=== PATIENT | female | born 1940 | race Caucasian/White ===

== ENCOUNTER 2018-09-09 11:59 | Observation (INO) ==
[2018-09-09] MEDS ORDERED: Isovue-370 500 ML INFUS..BTL IV ONE (12:32)
[2018-09-09] MEDS ORDERED: 0.9 % Sodium Chloride 1,000 ML IVC ONE (12:33)
[2018-09-09 12:36] LABS: Basophils % 0.7 %; Eosinophils # 0.2 K/mcL (0.0-0.6); Eosinophils % 3.4 %; Hematocrit 38.8 % (35.3-44.9); Hemoglobin 12.5 g/dL (11.5-15.4); Lymphocytes # 1.2 K/mcL (0.6-4.6); Lymphocytes % 19.6 %; Mean Corpuscular HGB Conc 32.2 g/dL (31.6-35.5); Mean Corpuscular Hemoglobin 31.5 pg (28.0-33.3); Mean Corpuscular Volume 97.7 fL (83.0-100.0); Mean Platelet Volume 11.2 fL (9.4-12.4); Monocytes # 0.5 K/mcL (0.0-1.3); Monocytes % 8.6 %; Platelet Count 243 K/mcL (140-400); Red Blood Count 3.97 M/mcL (3.82-4.97); Red Cell Distribution Width 12.8 % (11.5-14.5); Segmented Neutrophils % 67.7 %
--- NOTE | 2018-09-09 12:43 | Emergency Department Note ---
Disposition Clinical Impression: Generalized weakness Chest pain Qualifiers: Chest pain type: unspecified Qualified Code(s): R07.9 - Chest pain, unspecified Disposition: Admitted As Inpatient Condition: Good Forms: ED Satisfaction Letter Time of Disposition: 14:48 General Adult HPI - General Chief complaint: ED Chest Pain Stated complaint: CP Time Seen by Provider: 09/09/18 12:00 Source: patient, family Mode of arrival: ambulatory Limitations: no limitations Nursing Notes Reviewed: Yes Vital Signs Reviewed: Yes - History of Present Illness HPI Narrative: 77 year old female presents to the eD with complaints of chest pain on the right upper side and states that this has been getting wrose over the past cople of a days and ahas a history of paroxysmal atrial fibrillation which required conversion last month at [facility] in [place], [place]. Ramy states that the last time she felt like this she was diagnosed with influenza and norovirus and she is experincig brown watery stool. Ramy states that the chest pain is sharp and cramping and worse with movement and coughs and states that she has epigastiric pain as well. Ramy denies fvers but states that she tends to have low eletrolytes that results in replacement and hosital aimdsison. Ramy appers midly to moderately dehydrated as well. Ramy otderikrmiguel is at baseline for her vitals. denies exertional dyspnea or diaphoreiss. NO recent history of DVTs. PE although she did have caardiac procedures including a JAIRO done last month. - Related Data Allergies Allergy/AdvReac Type Severity Reaction Status Date / Time onabotulinumtoxinA AdvReac See Verified 06/16/18 18:07 [From Botox] Comments Constitutional: Denies: fever, chills, weakness, weight change Eyes: Denies: eye pain, eye discharge, vision change ENT ED: Denies: ear pain, throat pain, dental pain, hearing loss, epistaxis, congestion, dysphagia Cardiovascular: Reports: chest pain. Denies: palpitations, dyspnea on exertion, edema, syncope Respiratory: Denies: cough, dyspnea, wheezes, hemoptysis, stridor Gastrointestinal: Reports: abdominal pain, diarrhea. Denies: nausea, vomiting, constipation, hematemesis, melena, hematochezia Genitourinary: Denies: dysuria, frequency, hematuria, discharge Musculoskeletal: Denies: back pain, neck pain, arthralgia, myalgia Integumentary: Denies: rash, abrasion, lesions Neurological: Denies: headache, weakness, numbness, paresthesias, confusion, abnormal gait, vertigo Psychiatric: Denies: anxiety, depression, suicidal thoughts, homicidal thoughts, auditory hallucinations, visual hallucinations Endocrine: Denies: fatigue Hematological/Lymphatic: Denies: easy bleeding, easy bruising Allergic/Immunologic: Denies: facial swelling, urticaria Past Medical History - Past Medical History Medical history: Reports: atrial fibrillation, hyperlipidemia, hypertension Psychiatric history: Reports: anxiety - Social History Smoking Status: Former smoker Alcohol use: Reports: none Drug use: Reports: none Physical Exam - General Limitations: no limitations General appearance: alert, in no apparent distress - Head Head exam: atraumatic, normocephalic, normal inspection - Eye Eye exam: Present: normal appearance, PERRL, EOMI - Expanded Eye Exam Pupils: Bilateral: reactive - ENT ENT exam: normal exam, normal oropharynx, mucous membranes moist - Expanded ENT Exam External ear exam: Present: normal external inspection Mouth exam: Present: normal external inspection Teeth exam: Present: normal inspection Throat exam: Present: normal inspection - Neck Neck exam: Present: normal inspection, full ROM, trachea midline - Chest Chest inspection: Present: normal inspection, symmetric chest wall rise - Respiratory Respiratory exam: Present: normal lung sounds bilaterally - Cardiovascular Cardiovascular exam: Present: regular rate, normal rhythm, normal heart sounds - Abdominal Exam Abdominal exam: Present: soft, tenderness. Absent: Non-Tender, distention, guarding, rebound, rigidity Abdominal tenderness: Present: epigastrium, mild - Extremities Exam Extremities exam: Present: normal inspection, full ROM. Absent: tenderness, pedal edema - Expanded Upper Extremity Exam Shoulder exam: Present: normal inspection, full ROM Arm exam: Present: normal inspection, full ROM Elbow exam: Present: normal inspection, full ROM Forearm/Wrist exam: Present: normal inspection, full ROM Hand exam: Present: normal inspection, full ROM Vascular exam: Normal: capillary refill, radial pulse - Expanded Lower Extremity Exam Hip/Pelvis exam: Present: normal inspection, full ROM Upper leg exam: Present: normal inspection, full ROM Knee exam: Present: normal inspection, full ROM Lower leg exam: Present: normal inspection, full ROM Ankle exam: Present: normal inspection, full ROM Foot/toe exam: Present: normal inspection, full ROM Neurovascular/Tendon exam: Absent: motor deficit, sensory deficit, tendon deficit - Back Exam Back exam: Present: normal inspection, full ROM. Absent: tenderness - Neurological Exam Neurological exam: Present: alert, oriented X3 - Expanded Neurological Exam Patient oriented to: Present: person, place, time Coma Scale Eye Opening: Spontaneous Coma Scale Motor Response: Obeys Commands Coma Scale Verbal Response: Oriented Coma Scale Total: 15 - Psychiatric Psychiatric exam: Present: normal affect, normal mood - Skin Skin exam: Present: warm, dry, intact, normal color Course Course Narrative: we will do a cardiopulmonar and GI workup and CTA chest wit aBCt with IV contrast. IVF and influenza swab. - Consultations Consultation #1: discussed case with Dr. Perez and she accepts patient to her service Time: 14:48 Vital Signs Temperature 98.3 F 09/09/18 12:35 Pulse Rate 55 09/09/18 12:35 Respiratory Rate 16 09/09/18 12:35 Blood Pressure 134/80 09/09/18 12:35 O2 Sat by Pulse Oximetry 98 09/09/18 12:35 Temperature 98.3 F 09/09/18 12:35 Pulse Rate 68 09/09/18 14:44 Respiratory Rate 16 09/09/18 14:44 Blood Pressure 99/55 09/09/18 14:44 O2 Sat by Pulse Oximetry 95 09/09/18 14:44 Oxygen Delivery Oxygen Delivery Room Air Medical Decision Making - Medical Records Medical records reviewed: Yes I reviewed the patient's medical records. - Lab Data Lab results reviewed: Yes I reviewed the patient's lab results. Result diagrams: 09/09/18 12:23 09/09/18 12:23 Lab Results 09/09/18 09/09/18 09/09/18 Range/Units 12:23 12:23 12:23 WBC 5.9 (4.3-11.1) K/mcL RBC 3.97 (3.82-4.97) M/mcL Hgb 12.5 (11.5-15.4) g/dL Hct 38.8 (35.3-44.9) % MCV 97.7 (83.0-100.0) fL MCH 31.5 (28.0-33.3) pg MCHC 32.2 (31.6-35.5) g/dL RDW 12.8 (11.5-14.5) % Plt Count 243 (140-400) K/mcL MPV 11.2 (9.4-12.4) fL Immature Gran % 0.0 (0-4) % Seg Neutrophils % 67.7 % Lymphocytes % 19.6 % Monocytes % 8.6 % Eosinophils % 3.4 % Basophils % 0.7 % Neutrophils # 4.0 (1.6-8.9) K/mcL Lymphocytes # 1.2 (0.6-4.6) K/mcL Monocytes # 0.5 (0.0-1.3) K/mcL Eosinophils # 0.2 (0.0-0.6) K/mcL Basophils # 0.0 (0.0-0.2) K/mcL PT 29.5 H (9.4-12.1) Seconds INR 2.6 APTT 41.8 H (26.0-36.0) Seconds Sodium 142 (136-145) mEq/L Potassium 4.1 (3.5-5.1) mEq/L Chloride 104 (98-107) mEq/L Carbon Dioxide 33 H (23-29) mEq/L BUN 19 (8-23) mg/dL Creatinine 0.79 (0.60-1.20) mg/dL Est GFR ( Amer) > 60 (> 60) Est GFR (Non-Af Amer) > 60 (> 60) BUN/Creatinine Ratio 24 (6-26) Glucose 96 (70-105) mg/dL Calculated Osmolality 296 (280-300) Calcium 9.2 (8.6-10.3) mg/dL Total Bilirubin 0.3 (0.3-1.0) mg/dL Direct Bilirubin 0.1 (0.0-0.2) mg/dL Indirect Bilirubin 0.2 (0.0-1.2) mg/dL AST 30 (13-39) Units/L ALT 21 (7-52) Units/L Alkaline Phosphatase 83 (34-104) Units/L Troponin I < 0.03 (< 0.04) ng/mL Serum Total Protein 6.5 (6.4-8.9) g/dL Albumin 4.0 (3.5-5.7) g/dL Globulin 2.5 (2.4-3.5) g/dL Albumin/Globulin Ratio 1.6 (1.1-2.2) Lipase 22 (11-82) Units/L - Radiology Data Radiology results reviewed: Yes I reviewed the patient's radiology results. - EKG Data EKG #1 EKG attestation: Yes I reviewed and interpreted this EKG. EKG results narrative: NSR with rate of 61. NO STEMI. normal interlva. occasionsl PVCs. no cahnge from 06/16/18. 121
[2018-09-09 12:45] LABS: INR 2.6; Prothrombin Time 29.5 Seconds (9.4-12.1)
[2018-09-09 12:48] LABS: Activated Partial Thrombo Time 41.8 Seconds (26.0-36.0)
[2018-09-09 12:57] LABS: Troponin I < 0.03 ng/mL (< 0.04)
[2018-09-09 13:03] LABS: Alanine Aminotransferase 21 Units/L (7-52); Albumin/Globulin Ratio 1.6 (1.1-2.2); Alkaline Phosphatase 83 Units/L (34-104); Aspartate Amino Transferase 30 Units/L (13-39); BUN/Creatinine Ratio 24 (6-26); Bilirubin,Direct 0.1 mg/dL (0.0-0.2); Bilirubin,Indirect 0.2 mg/dL (0.0-1.2); Bilirubin,Total 0.3 mg/dL (0.3-1.0); Blood Urea Nitrogen 19 mg/dL (8-23); Calcium 9.2 mg/dL (8.6-10.3); Carbon Dioxide 33 mEq/L (23-29); Chloride 104 mEq/L (98-107); Globulin 2.5 g/dL (2.4-3.5); Glucose 96 mg/dL (70-105); Lipase 22 Units/L (11-82); Osmolality,Calculated 296 (280-300); Potassium 4.1 mEq/L (3.5-5.1); Sodium 142 mEq/L (136-145); Total Protein 6.5 g/dL (6.4-8.9); eGFR For Non-African Americans > 60 (> 60)
[2018-09-09 14:56] LABS: Bilirubin,Urine Negative (Negative); Blood,Urine Small (Negative); Clarity,Urine Clear (Clear); Color,Urine Yellow (Yellow); Glucose,Urine (UA) Normal (Normal); Ketones,Urine Negative (Negative); Leukocyte Esterase,Urine Negative (Negative); Nitrite,Urine Negative (Negative); PH,Urine 7.5 pH Units (5.0-8.0); Protein,Urine Negative (Neg-Trace); Urobilinogen,Urine Normal (Normal)
[2018-09-09 14:59] LABS: Bacteria,Urine None Seen per hpf (None-Few); Hyaline Casts,Urine None Seen per lpf (None-Few); Squamous Epithelial Cell,Urine Few per lpf (None-Few); WBC,Urine 0-3 per hpf (0-3)
[2018-09-09] MEDS ORDERED: Naloxone 0.4 MG/ML INJ IVP PRN (15:45)
[2018-09-09] MEDS ORDERED: Nitroglycerin 0.4 MG TAB.SUBL SL PRN (15:59)
--- NOTE | 2018-09-09 16:43 | Internal Med History&Physical ---
Date of Encounter: 09/09/18 Time of Encounter: 15:41 Internal Medicine - H&P: HPI Chief complaint: chest pain Admitted From: Home Plans for Post Hospital Care: Home History of present illness: Ms. Urias is a 77 year old female has history of hypertension, atrial fibrillation on Coumadin, but no known CAD stents present to emergency room for chest pain. Patient stats that 5 days ago he got a cold with diarrhea, chest congestion, but yesterday morning she woke up with chest pain, pain is located to the left chest, is sharp, radiating to the neck, lasted for few min, she denies dizziness, palpation shortness of breath. She does complain of intermittent epigastric pain associated was nausea no vomiting. Since then she has been feeling well. she is concerned about a heart problem. In the emergency room she is afebrile, vitals are stable, lab was unremarkable INR 2.6, UA is negative for infections. CT angiogram of chest and abdominal did not PE, no aortic dissection . Negative troponin and EKG. Patient is going to be admitted for chest pain workup Past Med Surg Social Fam HX - Past Medical History Medical history: atrial fibrillation, hyperlipidemia, hypertension Psychiatric history: anxiety - Social History Smoking Status: Former smoker Alcohol use: none Drug use: none Internal Medicine - H&P: Meds Acetaminophen [Tylenol] 500 mg PO Q6HR PRN 09/09/18 [History] Aspirin [Adult Aspirin] 81 mg PO DAILY 09/09/18 [History] Atorvastatin Calcium 80 mg PO QPM 09/09/18 [History] Cholecalciferol (D-3) [Vitamin D] 1,000 unit PO DAILY 09/09/18 [History] Lisinopril [Zestril] 40 mg PO QAM 09/09/18 [History] Primidone [Mysoline] 250 mg PO TID 09/09/18 [History] Sotalol [Betapace] 80 mg PO BID 09/09/18 [History] Warfarin [Coumadin] 1.5 mg PO WE 09/09/18 [History] Warfarin [Coumadin] 5 mg PO SUMOTUTHFRSA 09/09/18 [History] clonazePAM [Clonazepam] 0.5 mg PO QAM 09/09/18 [History] Allergy/AdvReac Type Severity Reaction Status Date / Time onabotulinumtoxinA AdvReac See Verified 06/16/18 18:07 [From Botox] Comments All Systems PM: A 10-system review of systems was performed and is negative for pertinent findin gs except as documented above in the HPI. - Constitutional Vitals: Temp Pulse Resp BP Pulse Ox 98.3 F 64 16 126/77 95 09/09/18 12:35 09/09/18 15:30 09/09/18 14:44 09/09/18 15:30 09/09/18 14:44 General appearance: Present: A&O X 3, pleasant Exam: CONSTITUTIONAL: Patient appears as an age appropriate female well developed, in no acute distress. EYES Clear sclerae, bilateral pupils are equal, reactive to light and accommodation. Extraocular movements are intact RESPIRATORY: No accessory muscle use, bilateral clear to auscultation, no wheezing, no crackles/rales. CARDIOVASCULAR: Regular heart rate, normal S1 and S2, no murmurs GASTROINTESTINAL: bowel sounds present, soft, no tenderness. No hepatosplenomegaly. No bilateral CVA tenderness MUSCULOSKELETAL: Joints in normal range of motion, no clubbing, no edema, no cyanosis. Bilateral peripheral pulses 2+ LYMPHATIC no lymphadenopathy in neck, groin and axilla bilaterally, no thyromegaly. NEUROLOGIC: CN II to XII are grossly intact, no focal neurological deficit. Deep tendon reflexes 2+ bilaterally. Normal light touch sensation to upper and lower extremity PSYCHIATRIC: Oriented x3, with good insight, mood is euthymic. No hallucinations or delusions. SKIN: Skin warm and dry, no rashes, no open wound. Internal Med - H&P Results - Labs CBC & Chem 7: 09/09/18 12:23 09/09/18 12:23 Labs: Short CBC 09/09/18 Range/Units 12:23 WBC 5.9 (4.3-11.1) K/mcL Hgb 12.5 (11.5-15.4) g/dL Hct 38.8 (35.3-44.9) % Plt Count 243 (140-400) K/mcL Neutrophils # 4.0 (1.6-8.9) K/mcL BMP 09/09/18 12:23 Sodium 142 Potassium 4.1 Chloride 104 Carbon Dioxide 33 H BUN 19 Creatinine 0.79 Glucose 96 Calcium 9.2 Cardiac Enzymes 09/09/18 Range/Units 12:23 Troponin I < 0.03 (< 0.04) ng/mL Liver Function 09/09/18 Range/Units 12:23 Total Bilirubin 0.3 (0.3-1.0) mg/dL Direct Bilirubin 0.1 (0.0-0.2) mg/dL AST 30 (13-39) Units/L ALT 21 (7-52) Units/L Alkaline Phosphatase 83 (34-104) Units/L Albumin 4.0 (3.5-5.7) g/dL Urine 09/09/18 Range/Units 14:27 Urine Color Yellow (Yellow) Urine Clarity Clear (Clear) Urine pH 7.5 (5.0-8.0) pH Units Ur Specific Conrad 1.020 (1.010-1.025) Urine Protein Negative (Neg-Trace) mg/dL Urine Glucose (UA) Normal (Normal) mg/dL - Impressions ITS Impressions Chest X-Ray 09/09/18 12:01 IMPRESSION: No acute cardiopulmonary process identified. D/ / Maikol Bahena MD / Maikol Bahena MD Interpreting Provider: Maikol Bahena MD Abdomen/Pelvis CT 09/09/18 12:32 IMPRESSION: 1. No evidence of acute pulmonary embolism, aortic aneurysm or dissection. There is prominence of the main pulmonary artery suggestive of pulmonary arterial hypertension. 2. Changes of emphysema but no acute lung parenchyma or pleural disease. 3. No acute abnormalities in the abdomen or pelvis. No evidence of acute bowel abnormality. D/ / 09/09/2018 14:05:24 Mirlande Downey MD / schuyler Interpreting Provider: Mirlande Downey MD Chest CTA 09/09/18 12:32 IMPRESSION: 1. No evidence of acute pulmonary embolism, aortic aneurysm or dissection. There is prominence of the main pulmonary artery suggestive of pulmonary arterial hypertension. 2. Changes of emphysema but no acute lung parenchyma or pleural disease. 3. No acute abnormalities in the abdomen or pelvis. No evidence of acute bowel abnormality. D/ / 09/09/2018 14:05:24 Mirlande Downey MD / schuyler Interpreting Provider: Mirlande Downey MD - Assessment and plan (1) Chest pain Current Visit: Yes Status: Acute Assessment and plan: Chest pain denies history of CAD stents. We will follow up troponin stress test and echocardiogram Nitroglycerin when necessary Qualifiers: Chest pain type: chest pain due to myocardial ischemia Qualified Code(s): I20.8 - Other forms of angina pectoris (2) Atrial fibrillation Current Visit: Yes Status: Acute Assessment and plan: Patient has chronic atrial fibrillation was cardioverted, continue sotalol and Coumadin Qualifiers: Atrial fibrillation type: chronic Qualified Code(s): I48.2 - Chronic atrial fibrillation (3) Generalized weakness Current Visit: Yes Status: Acute Assessment and plan: Generalized weakness consult physical therapy (4) Hypertension Current Visit: Yes Status: Acute Assessment and plan: Continue lisinopril Qualifiers: Hypertension type: essential hypertension Qualified Code(s): I10 - Essential (primary) hypertension - Time Spent With Patient Total time spent is greater than 50% in coordination of care (as documented) at patient's floor/unit and/or counseling patient: Greater than 35 minutes
[2018-09-09] MEDS: D5% in 0.45% NACL 1,000 ML IVC SCH (16:45)
[2018-09-09] MEDS ORDERED: *HR* Warfarin 5 MG TABLET PO SCH (18:00)
[2018-09-09] MEDS ORDERED: Warfarin perPT PO PRN (18:00)
--- NOTE | 2018-09-09 21:30 | Electrocardiograph Report ---
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
[2018-09-10 04:07] VITALS: BP 155/62
[2018-09-10 04:21] LABS: Basophils # 0.1 K/mcL (0.0-0.2); Basophils % 0.8 %; Eosinophils # 0.2 K/mcL (0.0-0.6); Eosinophils % 3.7 %; Hematocrit 39.1 % (35.3-44.9); Hemoglobin 12.5 g/dL (11.5-15.4); Immature Granulocytes % 0.3 % (0-4); Lymphocytes # 1.4 K/mcL (0.6-4.6); Mean Corpuscular Hemoglobin 31.6 pg (28.0-33.3); Mean Platelet Volume 11.5 fL (9.4-12.4); Monocytes # 0.6 K/mcL (0.0-1.3); Monocytes % 9.4 %; Platelet Count 224 K/mcL (140-400); Red Blood Count 3.95 M/mcL (3.82-4.97); Red Cell Distribution Width 12.6 % (11.5-14.5); Segmented Neutrophils % 63.8 %
[2018-09-10 04:28] LABS: Prothrombin Time 34.3 Seconds (9.4-12.1)
[2018-09-10 04:39] LABS: Troponin I < 0.03 ng/mL (< 0.04)
[2018-09-10 04:40] LABS: BUN/Creatinine Ratio 22 (6-26); Blood Urea Nitrogen 16 mg/dL (8-23); Calcium 8.6 mg/dL (8.6-10.3); Carbon Dioxide 28 mEq/L (23-29); Chloride 106 mEq/L (98-107); Glucose 104 mg/dL (70-105); Osmolality,Calculated 295 (280-300); Potassium 3.6 mEq/L (3.5-5.1); Sodium 142 mEq/L (136-145); eGFR For Non-African Americans > 60 (> 60)
[2018-09-10] MEDS ORDERED: Regadenoson 0.4 MG/5 ML SYRINGE IVP ONE (06:03)
[2018-09-10] MEDS ORDERED: clonazePAM 0.5 MG TABLET PO SCH (09:00)
[2018-09-10] MEDS ORDERED: Aspirin Enteric Coated 81 MG Tablet PO SCH (09:00)
[2018-09-10] MEDS ORDERED: Lisinopril 20 MG TABLET PO SCH (09:00)
[2018-09-10] MEDS ORDERED: Cholecalciferol (D-3) 1,000 UNIT TABLET PO SCH (09:00)
[2018-09-10] MEDS: D5% in 0.45% NACL 1,000 ML IVC SCH (09:15)
--- NOTE | 2018-09-10 11:22 | Discharge Summary ---
- NOTES TO OUTPATIENT PROVIDER Notes to Outpatient Provider: f/u with cardiology within a week and discuss stress test as outpatient. f/u with PCP within 2 weeks. Orders not resulted at time of discharge: Pending orders 09/09/18 16:01 NM rhonda perf SPECT multi [NM] Routine 09/11/18 04:00 PT/INR [Prothrombin Time INR] [COAG] AM 0400 09/12/18 04:00 PT/INR [Prothrombin Time INR] [COAG] AM 0400 09/13/18 04:00 PT/INR [Prothrombin Time INR] [COAG] AM 0400 Date of Encounter: 09/10/18 Time of Encounter: :19 - Discharge Diagnosis (1) Generalized weakness Priority: Primary Status: Acute (2) Chest pain Priority: Primary Status: Acute Qualifiers: Chest pain type: chest pain due to myocardial ischemia Qualified Code(s): I20.8 - Other forms of angina pectoris (3) Atrial fibrillation Priority: Secondary Status: Chronic Qualifiers: Atrial fibrillation type: chronic Qualified Code(s): I48.2 - Chronic atrial fibrillation (4) Hypertension Priority: Secondary Status: Chronic Qualifiers: Hypertension type: essential hypertension Qualified Code(s): I10 - Essential (primary) hypertension Hospital course: Ms. Urias is a 77 year old female has history of hypertension, atrial fibrillation on Coumadin, but no known CAD or stents present to emergency room for chest pain. Patient stats that 5 days ago he got a cold with diarrhea, chest congestion, but yesterday morning she woke up with chest pain, pain is located to the left chest, is sharp, radiating to the neck, lasted for few min, she denies dizziness, palpation shortness of breath. She does complain of intermittent epigastric pain associated was nausea no vomiting. Since then she has been feeling well. she is concerned about a heart problem. In the emergency room she is afebrile, vitals are stable, lab was unremarkable INR 2.6, UA is negative for infections. CT angiogram of chest and abdominal did not show PE or aortic dissection, but showed mild colonic wall thickening suspicious for mild colitis. Negative troponin and EKG. BNP was significantly elevated but pt was euvolemic, denies sob or leg swelling. Echocardogram showed normal EF with normal LV systolic function, indeterminate LVDD. A stress test was ordered, however, pt cannot lay flat due to neck pain from arthritis and the test was cancelled. After discussed with pt, she prefers stress test as outpatient. She will be discharged home today and f/u with cardiology within a week. Discharge discussed with: patient Time spent discussing smoking cessation with patient: more than 10 minutes - Time Spent with Patient Total time spent providing and/or coordinating discharge services: Greater than 30 minutes - Discharge Medications Home Medications: Acetaminophen [Tylenol] 500 mg PO Q6HR PRN 09/09/18 [History] Aspirin [Adult Aspirin] 81 mg PO DAILY 09/09/18 [History] Atorvastatin Calcium 80 mg PO QPM 09/09/18 [History] Cholecalciferol (D-3) [Vitamin D] 1,000 unit PO DAILY 09/09/18 [History] Lisinopril [Zestril] 40 mg PO QAM 09/09/18 [History] Primidone [Mysoline] 250 mg PO TID 09/09/18 [History] Sotalol [Betapace] 80 mg PO BID 09/09/18 [History] Warfarin [Coumadin] 1.5 mg PO WE 09/09/18 [History] Warfarin [Coumadin] 5 mg PO SUMOTUTHFRSA 09/09/18 [History] clonazePAM [Clonazepam] 0.5 mg PO QAM 09/09/18 [History] Allergies/Adverse Reactions: Allergy/AdvReac Type Severity Reaction Status Date / Time onabotulinumtoxinA AdvReac See Verified 06/16/18 18:07 [From Botox] Comments Date of admission: 09/09/18 15:23 Primary care physician: Daysi Apodaca CNP Consults: 09/09/18 16:22 Consult to Vice President Quality Improvement [CONS] Routine Reason for SW Consult: Pt reports she needs help at home Anticipated date of discharge: 09/10/18 - Constitutional Vitals: Temp Pulse Resp BP Pulse Ox 98 F 60 14 155/62 95 09/10/18 04:04 09/10/18 04:04 09/10/18 04:04 09/10/18 04:04 09/10/18 04:04 General appearance: Present: A&O X 3, pleasant Exam: PHYSICAL EXAMINATION: GENERAL APPEARANCE: The patient is alert, oriented and in no acute distress. HEENT: Head is normocephalic. The sinuses are nontender. Pupils are equal and reactive. The nares are patent. Oropharynx clear without lesions. NECK: Supple without lymphadenopathy. HEART: Regular rate and rhythm. LUNGS: No crackles or wheezes are heard. ABDOMEN: Soft, nontender, nondistended with good bowel sounds heard. Inguinal area is normal. EXTREMITIES: Without cyanosis, clubbing or edema. NEUROLOGICAL: Gross nonfocal. SKIN: Warm and dry without any rash. - Patient Status Disposition: Home, Self-Care Condition: Good Functional capacity at discharge: independent ambulation Overall status at discharge: patient is progressing back to baseline - Discharge Instructions Follow Up With: Daysi Apodaca CNP [Primary Care Provider] - 09/11/18 9:30 am - Diet and Activity Activity: increase activity as tolerated Diet: advance to your usual diet
[2018-09-10] MEDS ORDERED: Warfarin perPT PO PRN (12:02)
[2018-09-10] MEDS ORDERED: *HR* Warfarin 3 MG TABLET PO ONE (18:00)
[2018-09-10] MEDS ORDERED: *HR* Warfarin 1 MG TABLET PO SCH (18:00)
== END 2018-09-10 13:32 | disposition home or self-care (01) ==
LOC: 3BNU 11:59 → EMEROOARM 11:59 → 3BNU 15:37
PROVIDERS: ADMIT Hospitalist; ATTEND Hospitalist